=== PATIENT | female | born 1995 | race Caucasian/White ===

== ENCOUNTER 2019-05-12 21:04 | Emergency (ER) | payer MEDICAID ==
[~2019-05-12] VITALS: Ht 167.6 cm; Wt 90.7 kg
[2019-05-13 04:15] VITALS: BP 132/80
[2019-05-13] MEDS ORDERED: BACITRACIN TOP OINT 1 UD PKG TOP ONE (04:45)
== END 2019-05-13 04:49 | disposition home or self-care (01) ==
LOC: ER 21:07
DX: S61.306A Unspecified open wound of right little finger with damage to nail, initial encounter (principal); W21.01XA Struck by football, initial encounter; Y93.61 Activity, american tackle football; Y92.39 Other specified sports and athletic area as the place of occurrence of the external cause; Y99.8 Other external cause status
CPT/HCPCS: 11730